=== PATIENT | male | born 1970 | race Caucasian/White ===

== ENCOUNTER 2020-04-08 19:50 | Emergency (ER) | payer OTHER, SELFPAY ==
[2020-04-08 19:51] VITALS: BP 199/114; PULSE 118; RESP 18; TEMP 36.3; O2SAT 99; BMI 51.6
--- NOTE | 2020-04-08 20:09 | ED.VIS.GEN ---
History of Present Illness Chief Complaint: Lower Extremity Injury Informant: Patient Onset: Today Current Severity: Mild Maximum Severity: Mild Narrative: Patient presents with left lower extremity pain after falling through some scaffolding at work. He states the plywood between the metal bars gave way and he fell through, dangling from the area. He is complaining of pain primarily to the anterior left knee. He is able to ambulate but does walk with antalgic gait. He denies paresthesias. He denies head injury. - Past Medical History (1) Hypertension Status: Chronic Past Medical History - Allergies and Home Meds Allergies/Adverse Reactions: Allergies No Known Allergies Allergy (Verified 04/08/20 19:53) Primary Care Physician: [facility] Doctor,Out of [NON-STAFF] - Prior records reviewed: Yes Smoking Status: Former smoker Review of Systems General: Denies: Chills, Fever Eyes: Denies: Visual changes - bilaterally ENT: Denies: Bilateral ear pain Cardiovascular: Denies: Chest pain Respiratory: Denies: Dyspnea, Cough Gastrointestinal: Denies: Abdominal pain, Nausea, Vomiting Musculoskeletal: Reports: Swelling, Extremity Pain Skin: Denies: Rash Neurological: Denies: Headache Hematologic: Denies: Easy bruising, Easy bleeding Allergy: Denies: Uticaria Physical Exam Vital Signs/Narrative: Vital Signs Temp Pulse Resp BP Pulse Ox 04/08/20 19:51 97.4 F L 118 H 18 199/114 H 99 Inital Vital Signs reviewed: Yes General: Well nourished, Well developed Head: Normocephalic ENT: Moist mucous membranes Neck: Supple Cardiovascular: Regular rate, Regular rhythm Respiratory: No distress, CTA bilaterally Abdomen: Soft, Nontender Extremities: - - Small hematoma noted just proximal and lateral to the left patella. No overlying abrasions. No joint tenderness. No calf or thigh tenderness. Strong distal pulses noted. Neurological: Alert, Oriented x3 Psychological: Normal affect Diagnostic/Tx/Re-eval Impressions Knee X-Ray 04/08/20 20:18 IMPRESSION: Degenerative changes. Atherosclerosis. Electronically Signed: Vicki Golsdtein MD at 20:43 EDT Tel , Service support , 04/08/20 20:18 Knee 4 or More Views [RAD] Stat - Medical Decision Making Patient is given naproxen for pain. Oleksandr wrap is applied to the knee. Test results discussed with the patient. He will follow-up with [facility]. ED Disposition - Plan for ED Patient: Disposition: Home or Assisted Living Diagnosis: Contusion of left knee Instructions: ED Sprain Knee Prescriptions: Naproxen [Naprosyn] 500 mg PO BID PRN PRN #20 tablet PRN Reason: Pain Score 4-10/10 Referrals: [facility] OF [facility]YSICIANS] - 3-5 Days
[2020-04-08] MEDS: Naproxen 500 MG Tablet PO (20:11)
--- NOTE | 2020-04-08 20:18 | RAD_ITS ---
STUDY: X-RAY - LEFT KNEE REASON FOR EXAM: Male, 50 years old. FELL THROUGH PALLET AT WORK, GENERALIZED LEFT KNEE PAIN TECHNIQUE: 4 view(s) of the knee. COMPARISON: None. FINDINGS: Normal visualized distal femur. Normal visualized proximal tibia and fibula. Normal proximal tibiofibular articulation. There is moderate degenerative arthrosis of the medial femorotibial compartment with moderate joint space narrowing. Normal lateral femorotibial compartment. There is mild degenerative arthrosis of the patellofemoral articulation. There is a soft tissue prominence in the suprapatellar region suggesting a small volume joint effusion. The soft tissue structures are unremarkable. RAD/Knee 4 or More Views IMPRESSION: Degenerative changes. Atherosclerosis. Electronically Signed: Vicki Goldstein MD at 20:43 EDT Tel , Service support ,
== END 2020-04-08 21:26 | disposition home or self-care (01) ==
PROVIDERS: Emergency Provider Emergency Medicine
DX: S80.02XA Contusion of left knee, initial encounter (principal); W13.8XXA Fall from, out of or through other building or structure, initial encounter; Y93.9 Activity, unspecified; Y92.9 Unspecified place or not applicable; Y99.0 Civilian activity done for income or pay; I10 Essential (primary) hypertension; Z87.891 Personal history of nicotine dependence
CPT/HCPCS: 73564; 99283